=== PATIENT | female | born 1985 | race Caucasian/White ===

== ENCOUNTER 2018-10-15 08:21 | Outpatient (CLI) | payer OTHER | END 2018-10-15 09:20 | disposition home or self-care (01) | LOC: NST 08:21 | DX: Z34.83 Encounter for supervision of other normal pregnancy, third trimester (principal) ==

== ENCOUNTER 2018-10-15 12:23 | Inpatient (IN) | payer OTHER ==
[~2018-10-15] VITALS: Ht 175.3 cm; Wt 88.9 kg
== END 2018-10-22 09:43 | disposition home or self-care (01) | DRG 832 ==
LOC: OB/GYN 12:23 → LDR 12:23 → OB/GYN 17:25
PROVIDERS: ADMIT Obstetrics & Gynecology
PROC: 4A1HXCZ Monitoring of Products of Conception, Cardiac Rate, External Approach (ICD-10-PCS; 2018-10-15)
PROC: BY4CZZZ Ultrasonography of Second Trimester, Single Fetus (ICD-10-PCS; principal; 2018-10-17)
PROC: BY4CZZZ Ultrasonography of Second Trimester, Single Fetus (ICD-10-PCS; 2018-10-17)
DX: O60.02 Preterm labor without delivery, second trimester (principal); O26.872 Cervical shortening, second trimester; O26.842 Uterine size-date discrepancy, second trimester

== ENCOUNTER 2018-10-28 08:24 | Outpatient (CLI) | payer OTHER | END 2018-10-28 09:20 | disposition home or self-care (01) | LOC: NST 08:24 | DX: O60.03 Preterm labor without delivery, third trimester (principal); Z3A.28 28 weeks gestation of pregnancy ==

== ENCOUNTER 2018-11-11 07:19 | Outpatient (CLI) | payer OTHER | END 2018-11-11 08:25 | disposition home or self-care (01) | LOC: NST 07:19 | DX: Z34.83 Encounter for supervision of other normal pregnancy, third trimester (principal) ==

== ENCOUNTER 2018-11-25 08:17 | Outpatient (CLI) | payer OTHER | END 2018-11-25 09:11 | disposition home or self-care (01) | LOC: NST 08:17 | DX: Z34.83 Encounter for supervision of other normal pregnancy, third trimester (principal) ==

== ENCOUNTER 2018-12-16 17:34 | Inpatient (IN) | payer OTHER ==
[~2018-12-16] VITALS: Ht 175.3 cm; Wt 2.3 kg
== END 2018-12-18 11:47 | DRG 805 ==
LOC: LDR 17:34 → OB/GYN 17:34
PROVIDERS: ADMIT Obstetrics & Gynecology Maternal & Fetal Medicine
PROC: 10E0XZZ Delivery of Products of Conception, External Approach (ICD-10-PCS; principal; 2018-12-16)
PROC: 0KQM0ZZ Repair Perineum Muscle, Open Approach (ICD-10-PCS; 2018-12-16)
PROC: 0W8NXZZ Division of Female Perineum, External Approach (ICD-10-PCS; 2018-12-16)
PROC: 4A1HXCZ Monitoring of Products of Conception, Cardiac Rate, External Approach (ICD-10-PCS; 2018-12-16)
PROC: 4A033R1 Measurement of Arterial Saturation, Peripheral, Percutaneous Approach (ICD-10-PCS; 2018-12-16)
DX: O70.1 Second degree perineal laceration during delivery (principal); O60.14X0 Preterm labor third trimester with preterm delivery third trimester, not applicable or unspecified; Z37.0 Single live birth; Z3A.35 35 weeks gestation of pregnancy; Z22.330 Carrier of Group B streptococcus